=== PATIENT | female | born 1940 | race Caucasian/White ===

== ENCOUNTER 2018-02-23 20:55 | Emergency (ER) | payer MEDICARE, BC ==
[~2018-02-23] VITALS: Ht 165.1 cm; Wt 66.2 kg
[2018-02-23 21:34] LABS: BILIRUBIN,URINE NEGATIVE (NEG); CLARITY,URINE CLEAR; COLOR,URINE YELLOW; NITRITE,URINE NEGATIVE (NEG); PH,URINE 7.5; PROTEIN,URINE NEGATIVE (NEG-TRACE); UROBILINOGEN,URINE 0.2 mg/dL (0.2 mg/dL)
[2018-02-23 21:41] LABS: BACTERIA,URINE 0 /HPF (0-FEW); RBC,URINE 0 /HPF (0-2); SQUAMOUS EPITHELIAL CELL,UR FEW /LPF; WBC,URINE RARE /HPF (0-4)
[2018-02-23 21:54] LABS: BASO % 0 % (0-3); EOS # 0.1 x10^3/uL (0.0-0.7); EOS % 1 % (0-3); HEMATOCRIT 40.1 % (36.0-47.0); HEMOGLOBIN 13.9 g/dL (12.0-15.5); LYMPH # 1.4 x10^3/uL (1.0-4.8); LYMPH % 18 % (24-48); MEAN CORPUSCULAR HEMOGLOBIN 30 pg (25-35); MEAN CORPUSCULAR HGB CONC 35 g/dL (31-37); MEAN CORPUSCULAR VOLUME 86 fL (79-100); MONO # 0.7 x10^3/uL (0.0-1.1); MONO % 9 % (0-9); NEUT # 5.9 x10^3uL (1.8-7.7); NEUT % 72 % (31-73); PLATELET COUNT 366 x10^3/uL (140-400); RED BLOOD COUNT 4.65 x10^6/uL (3.50-5.40); RED CELL DISTRIBUTION WIDTH 14.3 % (11.5-14.5); WHITE BLOOD COUNT 8.1 x10^3/uL (4.0-11.0)
[2018-02-23 22:00] VITALS: BP 165/67
[2018-02-23] MEDS ORDERED: oxyCODONE/APAP 10/325 1 TAB TABLET PO ONE (22:00)
[2018-02-23 22:04] LABS: CALCIUM 9.9 mg/dL (8.5-10.1); CREATININE 0.8 mg/dL (0.6-1.0); GFR 69.4; POTASSIUM 3.9 mmol/L (3.5-5.1)
[2018-02-23 22:10] LABS: ALBUMIN 3.9 g/dL (3.4-5.0); ALBUMIN/GLOBULIN RATIO 1.1 (1.0-1.7); TOTAL BILIRUBIN 0.2 mg/dL (0.2-1.0); TOTAL PROTEIN 7.4 g/dL (6.4-8.2)
[2018-02-23] MEDS ORDERED: CYCL5TAB PO (22:32)
--- NOTE | 2018-02-23 22:32 | PHYS DOC ---
Past Medical History Past Medical History: Fibromyalgia, Other Additional Past Medical Histor: OA, PVC'S Past Surgical History: Hysterectomy, Other Additional Past Surgical Histo: BACK Alcohol Use: None Drug Use: None Adult General Chief Complaint Chief Complaint: FLANK PAIN HPI HPI Patient is a 77 year old female with history of chronic back pain, and fibromyalgia who presents with increased lower thoracic/lumbar paravertebral back pain for the past 2 weeks. Patient's been evaluated by her primary care physician is had an outpatient x-rays performed the past several days. She was started on tramadol as needed for constipation. Constipation and has since resolved, but pain is poorly controlled. Pain is described as sharp, aching as moderate to severe as worse with palpation and movement. It is partially relieved with tramadol and is not associated with nausea vomiting, fever chills , urinary frequency, urgency dysuria, hematuria or abdominal pain. No other acute symptoms or complaints. [] Review of Systems Review of Systems Review symptoms as per history of present illness. All other review symptoms are negative. All other systems were reviewed and found to be within normal limits, except as documented in this note. Current Medications Current Medications Current Medications Medications (Trade) Dose Ordered Sig/Tayler Start Time Stop Time Status Last Admin Dose Admin Oxycodone/ Acetaminophen (Percocet 10/325) 1 tab 1X ONCE 02/23/18 22:00 02/23/18 22:01 DC Allergies Allergies Allergies Coded Allergies Type Severity Reaction Last Updated Verified NSAIDS (Non-Steroidal Anti-Inflamma Adverse Reaction Intermediate Nausea and Vomiting 02/23/18 Yes hydrocodone Adverse Reaction Intermediate 02/23/18 Yes aspirin Adverse Reaction Mild Nausea 02/23/18 Yes Physical Exam Physical Exam Constitutional: Well developed, well nourished, no acute distress, non-toxic appearance. [] HENT: Normocephalic, atraumatic, bilateral external ears normal, oropharynx moist. [] Eyes: PERRLA, EOMI, conjunctiva normal. [] Neck: Normal range of motion, no tenderness. [] Cardiovascular:Heart rate regular rhythm, no murmur [] Lungs & Thorax: Bilateral breath sounds clear to auscultation [] Abdomen: Bowel sounds normal, soft, no tenderness.Nonpulsatile [] Skin: Warm, dry. [] Back: No midline back pain, tenderness to palpation, no CVA tenderness. Left lower thoracic and lumbar tttp. [] Extremities: No tenderness. [] Neurologic: Alert and oriented X 3, normal motor function, normal sensory function, no focal deficits noted. [] Psychologic: Affect normal, judgement normal, mood normal. [] Current Patient Data Vital Signs Vital Signs Date Time Temp Pulse Resp B/P (MAP) Pulse Ox O2 Delivery O2 Flow Rate FiO2 02/23/18 21:42 98.3 74 16 173/80 (111) 97 Room Air 98.3 Lab Values Laboratory Tests Test 02/23/18 20:42 02/23/18 21:45 Urine Collection Type Unknown Urine Color Yellow Urine Clarity Clear Urine pH 7.5 Urine Specific [place] 1.010 Urine Protein Negative mg/dL (NEG-TRACE) Urine Glucose (UA) Negative mg/dL (NEG) Urine Ketones (Stick) Negative mg/dL (NEG) Urine Blood Negative (NEG) Urine Nitrite Negative (NEG) Urine Bilirubin Negative (NEG) Urine Urobilinogen Dipstick 0.2 mg/dL (0.2 mg/dL) Urine Leukocyte Esterase Small (NEG) Urine RBC 0 /HPF (0-2) Urine WBC Rare /HPF (0-4) Urine Squamous Epithelial Cells Few /LPF Urine Bacteria 0 /HPF (0-FEW) White Blood Count 8.1 x10^3/uL (4.0-11.0) Red Blood Count 4.65 x10^6/uL (3.50-5.40) Hemoglobin 13.9 g/dL (12.0-15.5) Hematocrit 40.1 % (36.0-47.0) Mean Corpuscular Volume 86 fL (79-100) Mean Corpuscular Hemoglobin 30 pg (25-35) Mean Corpuscular Hemoglobin Concent 35 g/dL (31-37) Red Cell Distribution Width 14.3 % (11.5-14.5) Platelet Count 366 x10^3/uL (140-400) Neutrophils (%) (Auto) 72 % (31-73) Lymphocytes (%) (Auto) 18 % (24-48) L Monocytes (%) (Auto) 9 % (0-9) Eosinophils (%) (Auto) 1 % (0-3) Basophils (%) (Auto) 0 % (0-3) Neutrophils # (Auto) 5.9 x10^3uL (1.8-7.7) Lymphocytes # (Auto) 1.4 x10^3/uL (1.0-4.8) Monocytes # (Auto) 0.7 x10^3/uL (0.0-1.1) Eosinophils # (Auto) 0.1 x10^3/uL (0.0-0.7) Basophils # (Auto) 0.0 x10^3/uL (0.0-0.2) D-Dimer (Flor) 0.71 ug/mlFEU (0.00-0.50) H Sodium Level 133 mmol/L (136-145) L Potassium Level 3.9 mmol/L (3.5-5.1) Chloride Level 93 mmol/L (98-107) L Carbon Dioxide Level 30 mmol/L (21-32) Anion Gap 10 (6-14) Blood Urea Nitrogen 13 mg/dL (7-20) Creatinine 0.8 mg/dL (0.6-1.0) Estimated GFR (Cockcroft-Gault) 69.4 BUN/Creatinine Ratio 16 (6-20) Glucose Level 104 mg/dL (70-99) H Calcium Level 9.9 mg/dL (8.5-10.1) Total Bilirubin 0.2 mg/dL (0.2-1.0) Aspartate Amino Transferase (AST) 25 U/L (15-37) Alanine Aminotransferase (ALT) 29 U/L (14-59) Alkaline Phosphatase 116 U/L (46-116) Total Protein 7.4 g/dL (6.4-8.2) Albumin 3.9 g/dL (3.4-5.0) Albumin/Globulin Ratio 1.1 (1.0-1.7) Lipase 132 U/L (73-393) Laboratory Tests 02/23/18 21:45 Laboratory Tests 02/23/18 21:45 EKG EKG [] Radiology/Procedures Radiology/Procedures [] Course & Med Decision Making Course & Med Decision Making Pertinent Labs and Imaging studies reviewed. (See chart for details) [Reproducible mechanical back pain. Lab work otherwise nondiagnostic. Patient states she had recent outpatient imaging studies. She has been holding off her tramadol due to concerns of worsening constipation which she states has been adequately treated with MiraLAX and mag citrate Recommend continued tramadol, will add Flexeril with instructions to follow-up with PCP. Return precautions reviewed. ] Dragon Disclaimer Dragon Disclaimer This electronic medical record was generated, in whole or in part, using a voice recognition dictation system. Departure Departure Impression: Primary Impression: Lumbar back pain Disposition: HOME, SELF-CARE Condition: GOOD Referrals: EDY PENALOZA (PCP) Patient Instructions: Back Pain, Child Additional Instructions: Please continue her on take newly prescribed muscle relaxant as directed. Follow -up with your PCP early next week for reevaluation and further pain management. Return to the ED if you develop new or worsening symptoms. Scripts Cyclobenzaprine Hcl (CYCLOBENZAPRINE HCL) 5 Mg Tablet 5 MG PO TID, #30 TAB Prov: MEAGHAN VARGAS DO 02/23/18 MEAGHAN VARGAS DO Feb 23, 2018 22:32
[2018-02-23] MEDS ORDERED: ONDANSETRON PF 4 MG/2 ML VIAL. ONE (22:38)
[2018-02-23] MEDS ORDERED: fentaNYL PF VIAL 100 MCG/2 ML VIAL IV ONE (22:45)
[2018-02-23] MEDS ORDERED: ONDANSETRON PF 4 MG/2 ML VIAL. IV ONE (22:45)
== END 2018-02-23 22:40 | disposition home or self-care (01) ==
LOC: ER 20:55
DX: G89.29 Other chronic pain (principal); M54.5 Low back pain; M54.6 Pain in thoracic spine; M79.7 Fibromyalgia; Z90.710 Acquired absence of both cervix and uterus; M19.90 Unspecified osteoarthritis, unspecified site; Z88.5 Allergy status to narcotic agent; Z88.6 Allergy status to analgesic agent
CPT/HCPCS: 36415; 80053; 81001; 83690; 85025; 85379; 87086; 96374; 96375; 99284; J2405; J3010

== ENCOUNTER 2018-03-14 09:36 | Outpatient (CLI) | payer MEDICARE, BC ==
[2018-03-14] VITALS (17 sets, daily range): BP systolic 131–219; BP diastolic 62–117
[~2018-03-14] VITALS: Ht 165.1 cm; Wt 70.8 kg
[~2018-03-14 09:36] MED LIST: CYCL5TAB PO
[2018-03-14 10:11] LABS: BASO # 0.1 x10^3/uL (0.0-0.2); BASO % 1 % (0-3); EOS % 1 % (0-3); HEMATOCRIT 39.5 % (36.0-47.0); HEMOGLOBIN 13.6 g/dL (12.0-15.5); LYMPH # 1.2 x10^3/uL (1.0-4.8); LYMPH % 14 % (24-48); MEAN CORPUSCULAR HEMOGLOBIN 30 pg (25-35); MEAN CORPUSCULAR HGB CONC 35 g/dL (31-37); MEAN CORPUSCULAR VOLUME 87 fL (79-100); MONO # 0.9 x10^3/uL (0.0-1.1); MONO % 11 % (0-9); NEUT # 6.6 x10^3uL (1.8-7.7); NEUT % 75 % (31-73); PLATELET COUNT 357 x10^3/uL (140-400); RED BLOOD COUNT 4.55 x10^6/uL (3.50-5.40); RED CELL DISTRIBUTION WIDTH 14.9 % (11.5-14.5); WHITE BLOOD COUNT 8.8 x10^3/uL (4.0-11.0)
[2018-03-14 10:21] LABS: PROTHROMBIN TIME PATIENT 12.8 SEC (11.7-14.0)
[2018-03-14] MEDS ORDERED: fentaNYL PF VIAL 100 MCG/2 ML VIAL IV ONE ×2 (11:15→14:15)
[2018-03-14] MEDS ORDERED: fentaNYL PF VIAL 100 MCG/2 ML VIAL ONE ×3 (11:21→14:21)
[2018-03-14] MEDS ORDERED: SENN-82 PO (13:10)
[2018-03-14] MEDS ORDERED: ONDA8TAB9 PO (13:10)
[2018-03-14] MEDS ORDERED: METO-239 PO (13:10)
[2018-03-14] MEDS ORDERED: HYDR-2758 PO (13:10)
[2018-03-14] MEDS ORDERED: METH500T7 PO (13:10)
[2018-03-14] MEDS ORDERED: CALC200T3 PO (13:10)
[2018-03-14] MEDS ORDERED: FAMO20TA5 PO (13:10)
--- NOTE | 2018-03-14 13:17 | RAD ---
FDG tumor localization scan, PET/CT, 03/14/2018: History: Lymphadenopathy Following IV injection of 15.6 mCi of 18 F-FDG, imaging was performed from the skull base to the proximal thighs. The noncontrast CT component was performed for attenuation correction and anatomic localization purposes rather than for primary diagnosis. The patient's blood glucose level at the time of injection was 136 MG/DL. There is extensive adenopathy in the upper abdomen, also evident on the 03/01/2018 CT study. There are confluent enlarged mesenteric and retroperitoneal lymph nodes demonstrating maximum SUVs in the 18-25 range. The Deauville criteria score is 5. There are small hypermetabolic retrocrural lymph nodes bilaterally. There are several small hypermetabolic foci along the medial aspect of the right psoas muscle. There is a lesser degree of hypermetabolic adenopathy in the iliac regions bilaterally. The hepatic activity is heterogeneous. No definite liver lesion is seen. The CT component demonstrates a small amount of free fluid in the pelvis. Physiologic activity is present in the neck. There is a small hypermetabolic focus in the mid neck on the right demonstrating a maximum SUV of 3.5. No discrete underlying lymph node is visible. This finding is of uncertain significance. An elongated area of increased FDG uptake on the left is probably muscular. The neck activity is otherwise unremarkable. There are small foci of borderline increased activity at both nichelle demonstrate a maximum SUV of 2.7 on the right and 3.0 on the left. Activity at these levels is slightly greater than the mediastinal background. No definite enlarged nodes are seen at these levels. The findings may be reactive. No definite mediastinal adenopathy is seen. The CT component density demonstrates moderate calcific pleural plaquing on the right. A small focus of mildly increased activity in the musculature along the posterior aspect of the left hip is probably physiologic. No hypermetabolic bone lesion is identified. Moderate multilevel degenerative change is present in the spine. IMPRESSION: 1. Extensive hypermetabolic abdominal and pelvic adenopathy as described above compatible with given history of lymphoma. 2. Mild hypermetabolic retrocrural adenopathy.
[2018-03-14] MEDS ORDERED: LIDOCAINE WITH 8.4% SOD BICARB 3 ML DISP.SYRIN. ONE (13:29)
[2018-03-14] MEDS ORDERED: NALOXONE 0.4 MG/ML VIAL. ONE (13:52)
[2018-03-14] MEDS ORDERED: FLUMAZENIL 0.5 MG/5 ML VIAL. IV ONE (13:52)
[2018-03-14] MEDS ORDERED: MIDAZOLAM HCL/PF 2 MG/2 ML VIAL. ONE (13:52)
[2018-03-14] MEDS ORDERED: LIDOCAINE WITH 8.4% SOD BICARB 3 ML DISP.SYRIN. IJ ONE (14:15)
[2018-03-14] MEDS ORDERED: MIDAZOLAM HCL/PF 2 MG/2 ML VIAL. IV ONE (14:15)
--- NOTE | 2018-03-14 14:30 | PDOC ---
BRIEF OPERATIVE NOTE Pre-Op Diagnosis mesenteric/retroperitoneal mass Post-Op Diagnosis same Procedure Performed CT Biopsy Surgeon Savita Anesthesia Type: Conscious Sedation Specimens Obtained 5 x 18 g cores Findings retroperitoneal mass biopsy Complications No immediate CHANTEL MCLEAN MD Mar 14, 2018 14:30
--- NOTE | 2018-03-14 14:32 | PDOC ---
MODERATE SEDATION ASSESSMENT RISKS/ALTERNATIVES Risks/Alternatives Risks and alternatives of this type of sedation and procedure discussed with: RISK/ALTERNATIVES: Patient H & P ON CHART H & P H & P on chart and reviewed for co-morbid conditions and appropriate labs. H&P ON CHART: Yes STATUS PREG STATUS ASSESSED: Yes MEDS/ALLERGIES REVIEWED Meds/Allergies Reviewed Medications and Allergies including time and route of recently administered narcotics and sedatives. MEDS/ALLERGIES REVIEWED: Yes ASA RATING ASA RATING: II AIRWAY ASSESSMENT Airway Assessment Airway patency, oral function limitations, presence of caps, crowns, dentures, partials, and ability to extend neck assessed. AIRWAY ASSESSMENT: Yes MALLAMPATI SCORE MALLAMPATI SCORE: II PRE-SEDATION ASSESSMENT PRE-SEDATION ASSESSMENT: Yes CHANTEL MCLEAN MD Mar 14, 2018 14:32
--- NOTE | 2018-03-14 14:32 | PDOC1 ---
History and Physical Date of Procedure Date of Admission History of Present Illness Reason for Visit mesenteric/retroperitoneal mass Past Medical History Past Medical History see nursing pre-op assessment Current Medications Current Medications Current Medications Fentanyl Citrate (Fentanyl 2ml Vial) 50 mcg 1X ONCE IV Last administered on at 11:31; Start 03/14/18 at 11:15; Stop 03/14/18 at 11:16; Status DC Fentanyl Citrate (Fentanyl 2ml Vial) 100 mcg STK-MED ONCE .ROUTE ; Start at 11:21; Stop 03/14/18 at 11:22; Status DC Lidocaine/Sodium Bicarbonate (Buffered Lidocaine 1%) 3 ml STK-MED ONCE .ROUTE ; Start 03/14/18 at 13:29; Stop 03/14/18 at 13:30; Status DC Midazolam HCl (Versed) 2 mg STK-MED ONCE .ROUTE ; Start 03/14/18 at 13:52; Stop 03/14/18 at 13:53; Status DC Fentanyl Citrate (Fentanyl 2ml Vial) 100 mcg STK-MED ONCE .ROUTE ; Start at 13:52; Stop 03/14/18 at 13:53; Status DC Flumazenil (Romazicon) 0.5 mg STK-MED ONCE IV ; Start 03/14/18 at 13:52; Stop 03/14/18 at 13:53; Status DC Naloxone HCl (Narcan) 0.4 mg STK-MED ONCE .ROUTE ; Start 03/14/18 at 13:52; Stop 03/14/18 at 13:53; Status DC Lidocaine/Sodium Bicarbonate (Buffered Lidocaine 1%) 3 ml 1X ONCE IJ ; Start 03/14/18 at 14:15; Stop 03/14/18 at 14:16; Status DC Midazolam HCl (Versed) 2 mg 1X ONCE IV ; Start 03/14/18 at 14:15; Stop at 14:16; Status DC Fentanyl Citrate (Fentanyl 2ml Vial) 100 mcg 1X ONCE IV ; Start 03/14/18 at 14 :15; Stop 03/14/18 at 14:16; Status DC Fentanyl Citrate (Fentanyl 2ml Vial) 100 mcg STK-MED ONCE .ROUTE ; Start at 14:21; Stop 03/14/18 at 14:22; Status DC Active Scripts Active Reported Tums (Calcium Carbonate) 200 Mg Tab.chew 200 Mg PO Senna S Tablet (Sennosides/Docusate Sodium) 1 Each Tablet 2 Each PO BID Famotidine 20 Mg Tablet 20 Mg PO BID Methocarbamol 500 Mg Tablet 500 Mg PO QID Metoprolol Succinate ( Xl ) (Metoprolol Succinate) 25 Mg Tab.er.24h 1 Tab PO DAILY Zofran (Ondansetron Hcl) 8 Mg Tablet 1 Tab PO Q8HRS Hydrocodone-Apap 5-325 (Hydrocodone Bit/Acetaminophen) 1 Each Tablet 1 Tab PO PRN Q4HRS PRN Allergies Allergies: Coded Allergies: oxycodone (Verified Allergy, Intermediate, 03/14/18) NSAIDS (Non-Steroidal Anti-Inflamma (Verified Adverse Reaction, Intermediate, Nausea and Vomiting, 02/23/18) aspirin (Verified Adverse Reaction, Mild, Nausea, 02/23/18) Physical Exam Vital Signs Vital Signs Date Time Temp Pulse Resp B/P (MAP) Pulse Ox O2 Delivery O2 Flow Rate FiO2 03/14/18 14:25 18 99 Nasal Cannula 3.0 03/14/18 11:32 72 180/73 (108) 03/14/18 11:20 98.2 98.2 Other see nursing pre-op assessment Assessment Assessment Mesenteric/retroperitoneal mass Plan Plan CT Biopsy CHANTEL MCLEAN MD Mar 14, 2018 14:32
--- NOTE | 2018-03-15 10:35 | RAD ---
Procedure: CT-guided retroperitoneal biopsy Clinical Indication: 77-year-old with abdominal and retroperitoneal masses Sedation: Conscious sedation was administered with a total intraprocedural [id number]-gi-upeb time of 23 minutes. The patient was monitored by a qualified independent observer throughout the time of sedation. Please refer to the medical record for exact doses of medications utilized to achieve moderate sedation. Antibiotics: None Sterility: The procedure was performed in its entirety using appropriate elements of sterile technique. Consent: The procedure was explained in its entirety to the patient or the patients designated logistics service representative by a member of the treatment team, including a discussion of the risks, benefits and commonly accepted alternatives to the procedure, as well as the expected consequences of no therapy whatsoever. Discussion of the risks included, but was not limited to, those that are most frequent and those that are rare but possibly severe or life-threatening, as well as the possibility of unforeseen complications. Technique and Findings: Following informed consent, the patient was prepped and draped in usual sterile fashion. 1% lidocaine was used to achieve local anesthesia over the personal soft tissues after a preliminary CT scan of the area of interest was performed. A small dermatotomy was made. Under periodic CT surveillance, a 17-gauge needle guide was advanced towards a prominent retroperitoneal component of the mass and 5 x 18-gauge core biopsy specimens were obtained and divided between formalin and RPMI. The needle guide was removed and hemostasis was achieved with manual compression. Complications: No immediate Impression: 1. CT-guided retroperitoneal mass biopsy as described PQRS Compliance Statement: One or more of the following individualized dose reduction techniques were utilized for this examination: 1. Automated exposure control 2. Adjustment of the mA and/or kV according to patient size 3. Use of iterative reconstruction technique
--- NOTE | 2018-03-19 16:08 | PATHOLOGY ---
[facility] Accession Number: [id number] . 01 Material submitted: . ABDOMINAL MASS BIOPSY . 01 Clinical history: . Abdominal mass . 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 SEE COMMENT. (JPM:maribel; 03/19/2018) QMS/03/19/2018 . 02 Comment: Sections of the abdominal mass CT-guided needle biopsies reveal focal sheet-like areas of proliferation of atypical large lymphoid cells. The atypical cells have modest amounts of pale eosinophilic cytoplasm and possess enlarged, rounded to irregular nuclei containing one or more nucleoli. There are focally admixed small lymphocytes. There are foci of tumor necrosis. A portion of the specimen submitted for marker studies by flow cytometry reveals a population of monoclonal B-cells comprising 13.5% of total cells which are CD19 positive, CD10 positive (dim), CD5 negative, and show surface kappa light chain restriction. To confirm flow cytometric findings and characterize the target cells in a tissue architectural context, a panel of immunohistochemical stains is performed on block A2 and yields the following results: . CD20: Atypical lymphoid cells positive CD3: Atypical lymphoid cells negative; population of admixed small lymphocytes positive CD5: Atypical lymphoid cells negative; population of admixed small lymphocytes positive CD10: Atypical lymphoid cells positive BCL2: Atypical lymphoid cells positive BCL6: Atypical lymphoid cells positive MUM1: Atypical lymphoid cells negative Ki-67: Atypical lymphoid cells show a proliferation index of approximately 40-50% Cyclin D1: Atypical lymphoid cells negative . 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 . The case is also examined by Dr. Aaron, who concurs with the diagnosis. The results are reported to Dr. Godoy at 8:30 a.m. on 03/19/2018. (JPM:maribel; 03/19/2018) . . Special stains performed on block A2: Immunoperoxidase stains for CD20, CD3, CD5, CD10, BCL2, BCL6, MUM1, Ki-67, cyclin D1 . 02 Electronically signed: . Evaristo Vigil MD, Pathologist NPI- [id number] . 01 Gross description: . The specimen is received in formalin, labeled "Aury Hong, abdominal mass". Received are three needle cores of pale tanner soft tissue ranging in length from 1.4 to 1.8 cm, with each measuring 0.1 cm in diameter. The specimen is submitted entirely in cassettes A1 through A3. (CAA; 03/15/2018) QAC/QAC . 02 Pathologist provided ICD-10: C85.10 . 02 CPT . 866751, [id number], [id number], [id number] Specimen Comment: A courtesy copy of this report has been sent to Specimen Comment: [phone], , . Specimen Comment: Report sent to ,DR GODOY / DR PENALOZA Performed at: 01 [facility] [address], [place] [id number] MD Mina Baldwin MD Phone: [phone] Performed at: 02 [facility] [address] [place], [place] [id number] MD Evaristo Vigil MD Phone: [phone]
[2018-03-24] MEDS ORDERED: FENT1PAT15 TD (18:47)
[2018-03-24] MEDS ORDERED: POLY17PO3 PO (18:47)
[2018-03-24] MEDS ORDERED: LORA-434 PO (18:47)
[2018-03-24] MEDS ORDERED: LIDO700A39 TD (18:47)
== END 2018-03-14 16:44 | disposition home or self-care (01) ==
LOC: INTRAD 09:36
PROVIDERS: ATTEND Internal Medicine Hematology & Oncology
DX: C83.33 Diffuse large B-cell lymphoma, intra-abdominal lymph nodes (principal); Z79.899 Other long term (current) drug therapy; Z79.82 Long term (current) use of aspirin; Z88.6 Allergy status to analgesic agent; Z88.8 Allergy status to other drugs, medicaments and biological substances; Z79.01 Long term (current) use of anticoagulants
CPT/HCPCS: 36415; 49180; 77012; 78815; 85025; 85610; 85730; 88184; 88185; 99152; 99153; A9552; J2250; J3010; 88305; 88341; 88342; 88360

== ENCOUNTER → 2018-04-25 | Outpatient (CLI) | payer MEDICARE, BC ==
[2018-03-24 15:00] VITALS: BP 139/69
[~2018-04-25] MED LIST changes: +CALC200T3 PO; +FAMO20TA5 PO; +FENT1PAT15 TD; +HYDR-2761 PO; +LIDO700A39 TD; +LORA-434 PO; +METH500T7 PO; +METO-239 PO; +ONDA8TAB9 PO; +POLY17PO28 PO; +SENN-82 PO
--- NOTE | 2018-04-25 14:33 | RAD ---
FDG tumor localization scan, PET/CT, 04/25/2018: History: Restaging lymphoma Following IV injection of 15.5 mCi of 18 F-FDG imaging was performed from the skull base to the proximal thighs. The noncontrast CT component was performed for attenuation correction and anatomic localization purposes rather than for primary diagnosis. The patient's blood glucose level at the time of injection was is 110 MG/DL. Comparison is made to a study from 03/14/2018. Physiologic activity is present in the neck. No abnormal pulmonary or mediastinal FDG uptake is seen. Extensive hypermetabolic abdominal adenopathy present on the previous study has regressed. The CT component demonstrates marked interval decrease in size of the abnormal lymph nodes. The best defined residual lymph node lies in the left para-aortic region at the level of the renal vessels and measures approximately 23 x 13 mm. It measured 40 x 27 mm on the previous study. This node is no longer significantly hypermetabolic. No residual hypermetabolic abdominal or pelvic lymph nodes are seen. Normal GI tract and urinary tract activity is evident. Marrow activity in the spine has generally increased, probably representing rebound marrow hyperplasia due to interval chemotherapy. There is a mild thoracolumbar scoliosis with degenerative change, particularly at L1-[address] on the left. Incidental CT findings include the presence of a right Port-A-Cath extending to the level of the atriocaval junction. Fibrocalcific pleural plaquing is again noted in the right chest. IMPRESSION: 1. Previously seen abdominal and pelvic adenopathy has markedly regressed with only minimal residual left para-aortic adenopathy. No residual hypermetabolic adenopathy is evident. 2. The Deauville criteria score is 1.
== END | disposition home or self-care (01) ==
LOC: PETSC 09:30
PROVIDERS: ATTEND Internal Medicine Hematology & Oncology
DX: C83.33 Diffuse large B-cell lymphoma, intra-abdominal lymph nodes (principal); R59.0 Localized enlarged lymph nodes
CPT/HCPCS: 78815; A9552

== ENCOUNTER → 2018-07-18 | Outpatient (CLI) | payer MEDICARE, BC ==
[2018-03-24 15:00] VITALS: BP 139/69
[~2018-07-18] MED LIST changes: +ACET500T68 PO; +CRAN500C PO; +LORA0.5T PO
--- NOTE | 2018-07-18 12:46 | RAD ---
PET/CT imaging from the skull through the midthigh History: Lymphoma. Restaging. Comparison: April 25, 2018 PET/CT Technique: PET examination was performed from the skull base to the proximal thighs after intravenous administration of 13.0 mCi Fluorine [address] scan was performed for the purposes of localization and attenuation, not for primary diagnosis. Blood glucose level at time of injection was 109 mg/dl. PQRS Compliance Statement: One or more of the following individualized dose reduction techniques were utilized for this examination: 1. Automated exposure control 2. Adjustment of the mA and/or kV according to patient size 3. Use of iterative reconstruction technique Findings: Head and neck: No abnormal hypermetabolic uptake is seen. Chest: There is new uptake involving upper anterior mediastinum which represents the left brachiocephalic vein and therefore is a normal finding. More inferiorly within the anterior mediastinum at the level of the right ventricle, there is a new area of increased metabolic uptake. No soft tissue mass or enlarged lymphadenopathy or pericardial effusion is seen here. Therefore, this may represent focal hypermetabolic activity related to the right ventricular muscle. No new hypermetabolic thoracic lymphadenopathy is evident. No new lung nodule or lung infiltrate is seen. Chronic calcified pleural plaque and scarring of the right lung field is seen. Abdomen and pelvis: Other than physiologic GI tract and urinary tract activity, no other hypermetabolic area is seen. No hypermetabolic abdominal or pelvic lymphadenopathy is evident. The left periaortic lymph node described previously has not changed in size or appearance and is not hypermetabolic. The spleen is not enlarged without hypermetabolic activity. Musculoskeletal: Again seen is diffuse marrow activity consistent with rebound bone marrow hyperplasia after chemotherapy. No focally prominent hypermetabolic lesion is evident. No lytic process is seen. Impression: No significant lymphadenopathy is seen. No significant hypermetabolic activity is seen on this study. The Deauville criteria score is 1.
== END | disposition home or self-care (01) ==
LOC: PETSC 08:14
PROVIDERS: ATTEND Internal Medicine Hematology & Oncology
DX: C83.33 Diffuse large B-cell lymphoma, intra-abdominal lymph nodes (principal); J92.9 Pleural plaque without asbestos; R91.8 Other nonspecific abnormal finding of lung field
CPT/HCPCS: 78815; A9552

== ENCOUNTER 2018-07-31 08:26 | Outpatient (CLI) | payer MEDICARE, BC ==
[2018-07-31] VITALS (8 sets, daily range): BP systolic 119–140; BP diastolic 65–89
[~2018-07-31] VITALS: Ht 165.1 cm; Wt 57.6 kg
[~2018-07-31 08:26] MED LIST changes: -ACET500T68 PO; -CRAN500C PO; -LORA0.5T PO
[2018-07-31] MEDS ORDERED: ACET500T68 PO (08:47)
[2018-07-31] MEDS ORDERED: CRAN500C PO (08:47)
[2018-07-31 09:26] LABS: BASO % 1 % (0-3); EOS % 1 % (0-3); HEMATOCRIT 34.3 % (36.0-47.0); HEMOGLOBIN 11.4 g/dL (12.0-15.5); LYMPH # 0.8 x10^3/uL (1.0-4.8); LYMPH % 19 % (24-48); MEAN CORPUSCULAR HEMOGLOBIN 34 pg (25-35); MEAN CORPUSCULAR HGB CONC 33 g/dL (31-37); MEAN CORPUSCULAR VOLUME 103 fL (79-100); MONO # 0.6 x10^3/uL (0.0-1.1); MONO % 15 % (0-9); NEUT # 2.8 x10^3uL (1.8-7.7); NEUT % 65 % (31-73); PLATELET COUNT 211 x10^3/uL (140-400); RED BLOOD COUNT 3.33 x10^6/uL (3.50-5.40); RED CELL DISTRIBUTION WIDTH 15.7 % (11.5-14.5); WHITE BLOOD COUNT 4.3 x10^3/uL (4.0-11.0)
[2018-07-31] MEDS ORDERED: LIDOCAINE 1%/EPI 1:100,000 20 ML VIAL. ONE (09:31)
[2018-07-31] MEDS ORDERED: fentaNYL PF VIAL 100 MCG/2 ML VIAL ONE (10:01)
[2018-07-31] MEDS ORDERED: fentaNYL PF VIAL 100 MCG/2 ML VIAL IV ONE (10:15)
[2018-07-31] MEDS ORDERED: HYDR-2761 PO (10:15)
[2018-07-31] MEDS ORDERED: LORA0.5T PO (10:15)
[2018-07-31] MEDS ORDERED: LIDOCAINE 1%/EPI 1:100,000 20 ML VIAL. IJ ONE (10:15)
[2018-07-31] MEDS ORDERED: IV NORMAL SALINE 250ML 250 ML IV ONE (10:15)
[2018-07-31] MEDS ORDERED: ONDA8TAB9 PO (10:16)
--- NOTE | 2018-07-31 10:20 | PDOC ---
MODERATE SEDATION ASSESSMENT RISKS/ALTERNATIVES Risks/Alternatives Risks and alternatives of this type of sedation and procedure discussed with: RISK/ALTERNATIVES: Patient H & P ON CHART H & P H & P on chart and reviewed for co-morbid conditions and appropriate labs. H&P ON CHART: Yes STATUS PREG STATUS ASSESSED: Yes MEDS/ALLERGIES REVIEWED Meds/Allergies Reviewed Medications and Allergies including time and route of recently administered narcotics and sedatives. MEDS/ALLERGIES REVIEWED: Yes ASA RATING ASA RATING: II AIRWAY ASSESSMENT Airway Assessment Airway patency, oral function limitations, presence of caps, crowns, dentures, partials, and ability to extend neck assessed. AIRWAY ASSESSMENT: Yes MALLAMPATI SCORE MALLAMPATI SCORE: II PRE-SEDATION ASSESSMENT PRE-SEDATION ASSESSMENT: Yes CHANTEL MCLEAN MD Jul 31, 2018 10:20
--- NOTE | 2018-07-31 10:21 | PDOC ---
BRIEF OPERATIVE NOTE Pre-Op Diagnosis cancer Post-Op Diagnosis cancer in remission Procedure Performed Port removal Surgeon Savita Anesthesia Type: Conscious Sedation Findings Port removal Complications none CHANTEL MCLEAN MD Jul 31, 2018 10:21
--- NOTE | 2018-07-31 12:40 | NUR ---
Discharge Note: ROSARIO REED Discharge instructions and discharge home medications reviewed with including s/s requiring further attention, follow up, and wound care and a copy given. All questions have been answered and understanding verbalized. The following instructions and handouts were given: post moderate sedation and post port removal Discontinued lines and drains: 22g left hand Patient discharged to home via private vehicle with daughter
--- NOTE | 2018-07-31 14:56 | RAD ---
Procedure: Port-A-Cath removal Clinical Indication: 77-year-old no longer requiring chemotherapy Sedation: Conscious sedation was administered with a total intraprocedural [id number] time of 25 minutes. The patient was monitored by a qualified independent observer throughout the time of sedation. Please refer to the medical record for exact doses of medications utilized to achieve moderate sedation. Antibiotics: None Exposure: Kerma-Area Product: 0.2 Gycm2 Sterility: All elements of maximal sterile barrier technique including the use of a cap, mask, sterile gown, sterile gloves, large sterile sheet, appropriate hand hygiene, and 2% chlorhexidine for cutaneous antisepsis (or acceptable alternative antiseptic per current guidelines) were followed for this procedure. If ultrasound guidance was utilized, sterile ultrasound techniques were followed including use of a sterile probe cover. Consent: The procedure was explained in its entirety to the patient or the patients designated renewals representative by a member of the treatment team, including a discussion of the risks, benefits and commonly accepted alternatives to the procedure, as well as the expected consequences of no therapy whatsoever. Discussion of the risks included, but was not limited to, those that are most frequent and those that are rare but possibly severe or life-threatening, as well as the possibility of unforeseen complications. Technique and Findings: Following informed consent, the patient was prepped and draped in usual sterile fashion. Fluoroscopy revealed an intact right IJ Port-A-Cath. 1% lidocaine was used to achieve local anesthesia over the port site. A small dermatotomy was made. Blunt dissection techniques were then used to free the port from the pocket. The entirety of the port was removed and hemostasis was achieved with manual compression. The pocket was copiously irrigated with vancomycin impregnated sterile saline then closed with deep interrupted and running subcuticular 4-0 Vicryl suture. Complications: No immediate Impression: 1. Fluoroscopic guided Port-A-Cath removal as described
== END 2018-07-31 12:45 | disposition home or self-care (01) ==
LOC: INTRAD 08:26
PROVIDERS: ATTEND Internal Medicine Hematology & Oncology
DX: Z45.2 Encounter for adjustment and management of vascular access device (principal); C83.33 Diffuse large B-cell lymphoma, intra-abdominal lymph nodes; Z79.01 Long term (current) use of anticoagulants; Z88.8 Allergy status to other drugs, medicaments and biological substances; Z88.6 Allergy status to analgesic agent; Z88.5 Allergy status to narcotic agent
CPT/HCPCS: 36415; 36590; 77001; 85025; 85610; 85730; 99152; 99153; J3010; J3490; J7050; J7030

== ENCOUNTER → 2018-10-31 | Outpatient (CLI) | payer MEDICARE, BC ==
[2018-07-31 12:30] VITALS: BP 120/74
[~2018-10-31] MED LIST changes: +ACET500T68 PO; +CRAN500C PO; +LIDO700A21 TD; -LIDO700A39 TD; +LORA0.5T PO
--- NOTE | 2018-10-31 09:52 | RAD ---
FDG tumor localization scan, PET/CT, 10/31/2018: HISTORY: Restaging lymphoma Following IV injection of 15.3 mCi of 18 F-FDG, imaging was performed from the skull base to the proximal thighs. The noncontrast CT component was performed for attenuation correction and anatomic localization purposes rather than for primary diagnosis. The patient's blood glucose level the time of injection was 95 MG/DL. Comparison is made to a study from 07/18/2018. Physiologic activity is present in the neck. No hypermetabolic neck lesion is seen. There are foci of mildly increased activity at both nichelle which are more prominent than on the previous study. The maximum SUV at the left hilum is 4.1 and at the right is 3.3. There is a lesser degree of slightly increased activity in the right subcarinal region. The noncontrast CT component demonstrates no obvious adenopathy. No hypermetabolic pulmonary lesion is seen. 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 There are a few scattered linear opacities in both lungs compatible with scarring. Normal GI tract and urinary tract activity is present in the abdomen and pelvis. No hypermetabolic abdominal or pelvic lesion is seen. The diffuse marrow activity seen on the previous study has subsided and was presumably chemotherapy related. No new bony abnormality is detected. IMPRESSION: 1. Small foci of mildly increased FDG uptake at both nichelle and in the mediastinum. This could be reactive related to inflammation or infection. Recurrent lymphoma cannot be excluded, although this seems less likely considering the fact that the patient's original involvement was abdominal/pelvic. 2. No other significant FDG-PET abnormality is detected.
== END | disposition home or self-care (01) ==
LOC: PETSC 07:26
PROVIDERS: ATTEND Internal Medicine Hematology & Oncology
DX: C83.33 Diffuse large B-cell lymphoma, intra-abdominal lymph nodes (principal)
CPT/HCPCS: 78815; A9552

== ENCOUNTER 2018-11-18 08:34 | Outpatient (CLI) | payer MEDICARE, BC ==
[~2018-11-18] VITALS: Ht 165.1 cm; Wt 56.7 kg
[2018-11-18] VITALS (9 sets, daily range): BP systolic 125–174; BP diastolic 72–97
[2018-11-18 08:53] LABS: BASO % 1 % (0-3); EOS # 0.1 x10^3/uL (0.0-0.7); EOS % 3 % (0-3); HEMATOCRIT 42.1 % (36.0-47.0); HEMOGLOBIN 14.1 g/dL (12.0-15.5); LYMPH # 1.2 x10^3/uL (1.0-4.8); LYMPH % 37 % (24-48); MEAN CORPUSCULAR HEMOGLOBIN 31 pg (25-35); MEAN CORPUSCULAR HGB CONC 33 g/dL (31-37); MEAN CORPUSCULAR VOLUME 93 fL (79-100); MONO # 0.7 x10^3/uL (0.0-1.1); MONO % 21 % (0-9); NEUT # 1.2 x10^3uL (1.8-7.7); NEUT % 39 % (31-73); PLATELET COUNT 192 x10^3/uL (140-400); RED BLOOD COUNT 4.51 x10^6/uL (3.50-5.40); RED CELL DISTRIBUTION WIDTH 14.5 % (11.5-14.5); WHITE BLOOD COUNT 3.1 x10^3/uL (4.0-11.0)
[2018-11-18] MEDS ORDERED: METH-37 PO (09:02)
[2018-11-18] MEDS ORDERED: bilberry PO (09:02)
[2018-11-18] MEDS ORDERED: ACET500T68 PO (09:02)
[2018-11-18] MEDS ORDERED: LUTE6CAP3 PO (09:02)
[2018-11-18] MEDS ORDERED: CRAN425C3 PO (09:02)
[2018-11-18 09:03] LABS: PROTHROMBIN TIME PATIENT 12.4 SEC (11.7-14.0)
[2018-11-18] MEDS ORDERED: LIDOCAINE WITH 8.4% SOD BICARB 3 ML DISP.SYRIN. ONE (09:22)
[2018-11-18] MEDS ORDERED: fentaNYL PF VIAL 100 MCG/2 ML VIAL ONE (09:36)
[2018-11-18] MEDS ORDERED: MIDAZOLAM HCL/PF 2 MG/2 ML VIAL. ONE (09:36)
[2018-11-18] MEDS ORDERED: LIDOCAINE WITH 8.4% SOD BICARB 3 ML DISP.SYRIN. IJ ONE (10:00)
[2018-11-18] MEDS ORDERED: fentaNYL PF VIAL 100 MCG/2 ML VIAL IV ONE (10:00)
[2018-11-18 10:41] LABS: % ATYL 2 % (0-0); % BANDS 7 % (0-9); % BASOS 1 % (0-3); % EOS 3 % (0-5); % LYMPHS 43 % (24-48); % MONOS 19 % (0-10); % SEGS 25 % (35-66); PLT ESTIMATE ADEQUATE (ADEQUATE)
[2018-11-18 10:43] LABS: OVALOCYTES FEW
--- NOTE | 2018-11-18 11:29 | NUR ---
Discharge Note: ROSARIO REED Discharge instructions and discharge home medications reviewed with Patient and a copy given. All questions have been answered and understanding verbalized. The following instructions and handouts were given: Bone marrow biopsy after care. Discontinued lines and drains: Lt hand s/l discontinued with tip intact. Patient discharged to home with daughter via private car. Pt leaves in NAD.
--- NOTE | 2018-11-18 11:49 | RAD ---
CT-guided bone marrow biopsy. 11/18/2018 11:46 AM Indication: CYTOPENIA, HX OF LYMPHOMA Discussion: The risks and benefits of the procedure, including but not limited to, bleeding and infection were discussed patient. Informed consent was obtained. The patient was brought to the CT scanner and placed in the prone position. A timeout procedure was performed. Production Operator CT imaging of the pelvis demonstrated left ilium amenable to bone marrow biopsy. The overlying soft tissues were prepped and draped using maximum sterile barrier technique. 1% lidocaine without epinephrine was administered for local anesthesia. Under intermittent CT guidance, an OncControl needle was advanced into the bone marrow of the left iliac crest. 2 Aspirates and 1 core biopsy samples were obtained. Samples were delivered to pathology was present at the time of procedure. The needle was removed and manual pressure held to achieve hemostasis. No immediate complications were identified. The procedure was performed under conscious sedation including continuous cardiopulmonary monitoring via dedicated sedation nurse. Sedation time: 20 minutes Impression: Successful CT-guided bone marrow biopsy of the left iliac crest . PQRS Compliance Statement: One or more of the following individualized dose reduction techniques were utilized for this examination: 1. Automated exposure control 2. Adjustment of the mA and/or kV according to patient size 3. Use of iterative reconstruction technique
--- NOTE | 2018-11-22 21:05 | PATHOLOGY ---
[facility] Accession Number: [id number] . 01 Material submitted: . PART A: bone - BONE MARROW BIOPSY PART B: bone - BONE MARROW CLOT PART C: bone - BONE MARROW ASPIRATE SLIDES PART D: bone - PERIPHERAL BLOOD SMEARS PART E: bone - BONE MARROW FLOW . 01 Clinical history: . Cytopenia, history of lymphoma . 02 Diagnosis: Peripheral smear: - Mild leukopenia and absolute neutropenia. . Bone marrow, aspirate smears, clot section, and core biopsy: - Normocellular marrow showing trilineage hematopoiesis, no significant dyspoiesis, and mild left shift of granulopoiesis - negative for lymphomatous involvement. - Decreased iron stores. . (JPM:ratna; 11/22/2018) MBR/11/22/2018 . 02 Comment: The peripheral smear shows a mild leukopenia and absolute neutropenia. The bone marrow is normocellular and shows trilineage hematopoiesis, no significant dyspoiesis, and a mild left shift of granulopoiesis. There is no morphologic or immunophenotypic evidence of involvement by lymphoma. (JPM:ratna; 11/22/2018) . Special stains performed: Reticulin stain on A1. Iron stain on C1, B1, B2. . 02 Electronically signed: . Evaristo Vigil MD, Pathologist NPI- [id number] . 01 Gross description: . A. Received in formalin labeled "Aury Pitts BM BX," is a single needle core of tanner bone measuring 1.8 cm in length and 0.3 cm in diameter. The specimen is submitted entirely in cassette A1, following decalcification. . B. Received in formalin labeled "Aury Pitts BM Asp-clot," is an aggregate of dark tanner blood clot measuring 2.9 x 2.7 x 0.3 cm. The specimen is filtered and entirely submitted in cassette B1 and B2. (TSD; 11/18/2018) TOB/TOB . 02 Microscopic: . Laboratory Data: The WBC count is 3.1 K/CMM, and the automated WBC differential reveals 39% neutrophils, 37% lymphs, 21% monos, 3% eos, and 1% baso. The RBC count is 4.51 M/CMM, hemoglobin 14.1 G/DL, hematocrit 42.1%, MCV 93 FL, MCH 31 PG, MCHC 33 G/DL, and the RDW is 14.5%. The platelet count is 192 K/CMM. . Peripheral Smear: The peripheral smear is reviewed. The WBC count is mildly decreased. There is a mild absolute neutropenia. The WBC differential reveals predominant populations of segmented neutrophils and lymphocytes, with a smaller population of monocytes and occasional eosinophils noted. Neutrophils do not show dysplastic changes. There is no significant neutrophilic left shift. There are no circulating blasts. There is no leukoerythroblastic reaction. The lymphocyte population consists predominantly of small lymphocytes. There are no obvious circulating lymphoma cells. Red blood cells appear normochromic and normocytic and show no significant anisopoikilocytosis. Platelets appear normal in number and morphology. . Aspirate Smears: Two Montiel's-stained and one iron-stained aspirate smears are examined. The smears contain multiple marrow particles. The M/E ratio is within normal range. Erythroid maturation predominantly appears normoblastic. There are no megaloblastic or overt dysplastic changes. There appears to be a mild left shift of granulopoiesis. There are no dysplastic changes or increase of blasts. Megakaryocytes are focally adequate in number and are of variable ploidy. Plasma cells are not increased. Lymphocytes are not increased. There is no atypical lymphoreticular infiltrate. There are no cells foreign to the marrow. The iron stain shows focally adequate reticuloendothelial iron stores. No ringed sideroblasts are identified. . Bone Marrow Biopsy and Clot Section: Sections of the bone marrow biopsy reveal segments of bone marrow showing focal hemorrhage. Preserved areas of the biopsy are approximately 20%-30% cellular. The clot sections contain several marrow particles, the majority of which are also on the order of 20%-30% cellular. There is trilineage hematopoiesis. Erythroid and granulocytic precursors are present in varying stages of maturation. There is no increase of blasts. Megakaryocytes appear adequate in number and are of variable ploidy. There is a small, fairly well-demarcated non-paratrabecular lymphoid nodule present in the biopsy comprised of small lymphocytes. There are no abnormal lymphoid aggregates or granulomas. There is no evidence of marrow involvement by large cell lymphoma. There are no other cells foreign to the marrow. A reticulin stain obtained on the biopsy shows a focal mild increase of reticulin fibers. Iron stains obtained on the clot section show decreased iron stores. No ringed sideroblasts are identified. . Special Studies: Bone marrow submitted for flow cytometric analysis has a viability of 98.5%. Granulocytes comprise 56.6% of total cells and show phenotypic evidence of maturation without dysmaturation. Monocytes comprise 10.1% of total cells and are relatively increased and show phenotypic evidence of maturation without dysmaturation. CD45 dim, CD34 positive cells comprise 0.2% of total cells. Plasma cells are not increased and show unremarkable surface marker expression. Lymphocytes comprise 29.5% of total cells. T-cells comprise 84% of lymphoid cells and show a CD4/CD8 ratio of 0.6. NK-cells comprise 12% of lymphoid cells. An accurate evaluation of B-cell antigen expression and the kappa:lambda ratio is not possible due to the low number of B-cells identified. There is no immunophenotypic evidence of a lymphoproliferative disorder, acute leukemia, increase in blasts or plasma cell neoplasm. . (JPM:ratna; 11/22/2018) . 02 Pathologist provided ICD-10: D72.819, D70.9, D75.9 . 02 CPT . 245976, 911094, 207057, 671017, 896495, [id number], 479802, 692917, [id number] Specimen Comment: A courtesy copy of this report has been sent to Specimen Comment: [phone], , . Specimen Comment: Report sent to ,DR GODOY / DR PENALOZA Specimen Comment: A duplicate report has been generated due to demographic updates. Performed at: 01 [facility] [address], [place], [place] [id number] MD Mina Baldwin MD Phone: [phone] Performed at: [address] [facility] [address], [place] [id number] MD Evaristo Vigil MD Phone: [phone]
== END 2018-11-18 11:25 | disposition home or self-care (01) ==
LOC: INTRAD 08:34
PROVIDERS: ATTEND Internal Medicine Hematology & Oncology
DX: D72.818 Other decreased white blood cell count (principal); Z79.899 Other long term (current) drug therapy; Z79.01 Long term (current) use of anticoagulants
CPT/HCPCS: 36415; 38222; 77012; 85025; 85610; 88184; 88185; 88237; 88305; 88311; 88313; 99152; J3010; 85007

== ENCOUNTER → 2019-01-30 | Outpatient (CLI) | payer MEDICARE, BC ==
[2018-11-18 10:49] VITALS: BP 146/79
[~2019-01-30] MED LIST changes: +CRAN425C3 PO; +LUTE6CAP3 PO; +METH-37 PO; +bilberry PO
--- NOTE | 2019-01-31 10:46 | RAD ---
Examination: PET W CT SKULL TO MIDTHIGH History: Lymphoma restaging Comparison/Correlation: 10/31/2018 PET/CT exam FINDINGS: Net dose 15.5 mCi F-18 FDG was administered intravenously for purposes of PET/CT exam. Blood glucose level at the time of radiotracer administration was 99 mg/dL. Imaging was performed from the skull base to the proximal thighs. Hepatic reference uptake is SUV max of 2.1 . Uptake involving the visualized head and neck is unremarkable. Minimal linear scarring or atelectasis involving right middle lobe is present. Diffuse right pleural high density is noted. Correlate with treatment history. No corresponding calcific densities involving the left pleura. Uptake of radiotracer involving the nichelle bilaterally is noted with SUV max of up to 4.5 on the left. Hilar uptake otherwise of up to SUV max of 3 is noted. These foci of uptake are greater than hepatic uptake. There are no associated enlarged lymph nodes identified to involve the hilum. Number of foci of uptake involving hilar regions are similar to previous exam. Small focus of uptake involving subcarinal region also noted similar to the prior exam. No new foci of uptake involving the thorax. Mild nonspecific interstitial thickening of lung zuñiga noted. Uptake of radiotracer involving the abdomen and pelvis is unremarkable. Uptake involving bowel is physiologic in distribution. No abnormal uptake involving the abdomen or pelvis to correspond with lymph nodes. A few nonobstructive left renal lower pole calyceal calculi are present. Urinary bladder is unremarkable. Advanced degenerative disc space narrowing of the cervical spine and at the lumbar spine noted. IMPRESSION: Uptake involving the hilum and subcarinal region is unchanged. Maximum SUV at the left hilum of up to 4.5 is noted similar to the prior exam. No new foci of uptake. No suspicious new finding. PQRS Compliance Statement: One or more of the following individualized dose reduction techniques were utilized for this examination: 1. Automated exposure control 2. Adjustment of the mA and/or kV according to patient size 3. Use of iterative reconstruction technique Electronically signed by: Gregory Ruiz MD (01/31/2019 10:43 AM) [facility]
== END | disposition home or self-care (01) ==
LOC: PETSC 07:25
PROVIDERS: ATTEND Internal Medicine Hematology & Oncology
DX: C83.33 Diffuse large B-cell lymphoma, intra-abdominal lymph nodes (principal); D72.820 Lymphocytosis (symptomatic); N20.0 Calculus of kidney; M48.02 Spinal stenosis, cervical region; M48.061 Spinal stenosis, lumbar region without neurogenic claudication; Z88.8 Allergy status to other drugs, medicaments and biological substances
CPT/HCPCS: 78815; A9552

== ENCOUNTER → 2019-05-02 | Outpatient (CLI) | payer MEDICARE, BC ==
[2018-11-18 10:49] VITALS: BP 146/79
--- NOTE | 2019-05-02 18:29 | RAD ---
Examination: PET W CT SKULL TO MIDTHIGH History: Lymphoma restaging Comparison/Correlation: 01/30/2019 PET/CT exam FINDINGS: Net dose 14.36 mCi F-18 FDG was administered intravenously for purposes of PET/CT exam. Blood glucose level at the time of radiotracer administration was 104 mg/dL. Imaging was performed from the skull base to the proximal thighs. Hepatic reference uptake is SUV max of 2 . Uptake of radiotracer involving visualized head and neck is normal. Calcified pleural plaques are noted especially in the right. Linear scarring in the anterior right lung base is present. Bilateral hilar foci of uptake is present. SUV max is 2 at most the sites of uptake. There is a left lower hilar focus of uptake with SUV max of 3.3. This may correspond with a small lymph node. No enlarged lymph nodes are identified. The distribution of uptake is unchanged. Uptake of radiotracer within the abdomen and pelvis is unremarkable. Splenectomy noted. Nonobstructive left renal lower pole calculus present. No abnormal uptake involving bony structures. Severe L1-2 disc space narrowing. IMPRESSION: Mild decrease in SUV max of the left lower hilar focus of uptake compared to the previous exam. Uptake is mildly greater than that of the liver. Lymph nodes overall are not visualized on the noncontrast CT exam to correspond with foci of uptake noted. Consider contrast-enhanced CT exam for further evaluation of lymph nodes. No enlarged lymph nodes identified on CT images as part of this PET CT exam. No suspicious new focus of uptake. PQRS Compliance Statement: One or more of the following individualized dose reduction techniques were utilized for this examination: 1. Automated exposure control 2. Adjustment of the mA and/or kV according to patient size 3. Use of iterative reconstruction technique Electronically signed by: Gregory Ruiz MD (05/02/2019 6:26 PM) [facility]
== END ==
LOC: PETSC 07:19
PROVIDERS: ATTEND Internal Medicine Hematology & Oncology
DX: C83.33 Diffuse large B-cell lymphoma, intra-abdominal lymph nodes (principal); N20.0 Calculus of kidney; J94.8 Other specified pleural conditions
CPT/HCPCS: 78815; A9552

== ENCOUNTER → 2019-11-17 | Outpatient (CLI) | payer MEDICARE ==
[2018-11-18 10:49] VITALS: BP 146/79
[2019-11-17 10:38] LABS: BASO % 1 % (0-3); EOS # 0.1 x10^3/uL (0.0-0.7); EOS % 3 % (0-3); HEMATOCRIT 41.1 % (36.0-47.0); HEMOGLOBIN 14.2 g/dL (12.0-15.5); LYMPH % 28 % (24-48); MEAN CORPUSCULAR HEMOGLOBIN 33 pg (25-35); MEAN CORPUSCULAR HGB CONC 35 g/dL (31-37); MEAN CORPUSCULAR VOLUME 94 fL (79-100); MONO # 0.3 x10^3/uL (0.0-1.1); MONO % 8 % (0-9); NEUT # 2.3 x10^3/uL (1.8-7.7); NEUT % 62 % (31-73); PLATELET COUNT 189 x10^3/uL (140-400); RED BLOOD COUNT 4.37 x10^6/uL (3.50-5.40); RED CELL DISTRIBUTION WIDTH 13.8 % (11.5-14.5); WHITE BLOOD COUNT 3.7 x10^3/uL (4.0-11.0)
[2019-11-17 10:56] LABS: ALBUMIN 3.4 g/dL (3.4-5.0); ALBUMIN/GLOBULIN RATIO 1.2 (1.0-1.7); CALCIUM 8.2 mg/dL (8.5-10.1); GFR 53.3; POTASSIUM 3.9 mmol/L (3.5-5.1); TOTAL BILIRUBIN 0.3 mg/dL (0.2-1.0); TOTAL PROTEIN 6.2 g/dL (6.4-8.2)
== END | disposition home or self-care (01) ==
LOC: LAB 10:03
PROVIDERS: ATTEND Internal Medicine Hematology & Oncology
DX: C83.33 Diffuse large B-cell lymphoma, intra-abdominal lymph nodes (principal)
CPT/HCPCS: 36415; 80053; 83615; 85025

== ENCOUNTER → 2019-12-01 | Outpatient (CLI) | payer MEDICARE ==
[2018-11-18 10:49] VITALS: BP 146/79
[~2019-12-01] MED LIST changes: +IOHEXOL 240 MG/ML 50ML VIAL. PO ONE; +IOHEXOL 300 MG/ML 100ML VIAL. IV ONE
--- NOTE | 2019-12-01 13:19 | RAD ---
CT CHEST ABD PELVIS W/CONTRAST Indication: Lymphoma Technique: Postcontrast CT imaging was performed of the chest, abdomen, pelvis, multiplanar reconstruction images submitted. Oral contrast was also given. One or more of the following individualized dose reduction techniques were utilized for this examination: 1. Automated exposure control 2. Adjustment of the mA and/or kV according to patient size 3. Use of iterative reconstruction technique. Comparison: PET/CT May 02, 2019; 03/16/[address] CHEST: Findings: Similar right apical density near pleural surface is more likely due to fibrotic change. There is again scattered calcified pleural plaque on the right. There is no pericardial or pleural fluid, pneumothorax, infiltrate, or new suspicious pulmonary nodularity. No new enlarged nodes are identified of the chest. There is emphysema. IMPRESSION: 1. There is no new significant chest lymphadenopathy or suspicious pulmonary nodularity. 2. There are again calcified pleural plaques on the right. Abdomen pelvis FINDINGS: No new significantly enlarged nodes are identified of the abdomen or pelvis. There is dilatation of the more distal aspect of the descending duodenum about 4.2 cm with appearance of degree of associated wall thickening. There is no evidence of bowel obstruction, oral contrast and level of the ascending colon. There is no free air or significant free fluid. Both kidneys enhance, no hydronephrosis. There are couple of small inferior left renal calculi with the largest about 0.3 cm. There is no adrenal nodularity. No focal abnormality is identified of the liver. Spleen is not enlarged. Appearance of mild relative fullness of the tail of pancreas is similar. There is mild S-shaped curvature of the lumbar spine. There is multilevel lumbar degenerative disc disease. There is minimal grade 1 anterior spondylolisthesis L3-4 through L5-S1, multilevel lumbar facet degenerative change. There is some variable likely mild lateral recess stenosis likely greatest on the right at L4-5. There is moderate to severe narrowing of the left L1-2 neural foramen, somewhat lesser degree of narrowing on the right at L3-4 and L4-5. There are multiple phleboliths in the pelvis bilaterally. There is some scattered plaque of the abdominal aorta. IMPRESSION: 1. No new significantly enlarged nodes are identified by CT. 2. There is nonspecific dilatation of the descending duodenum with some associated nonspecific wall thickening, could be associated with duodenitis. 3. There are a couple of small nonobstructive inferior left renal calculi. Electronically signed by: Naga Chapman MD (12/01/2019 1:16 PM) [id number]
== END | disposition home or self-care (01) ==
LOC: CT 10:22
PROVIDERS: ATTEND Internal Medicine Hematology & Oncology
DX: C83.33 Diffuse large B-cell lymphoma, intra-abdominal lymph nodes (principal); N20.0 Calculus of kidney; J92.9 Pleural plaque without asbestos; M43.8X6 Other specified deforming dorsopathies, lumbar region; M51.36 Other intervertebral disc degeneration, lumbar region; M43.17 Spondylolisthesis, lumbosacral region; M47.816 Spondylosis without myelopathy or radiculopathy, lumbar region; M99.83 Other biomechanical lesions of lumbar region; I70.0 Atherosclerosis of aorta; J43.9 Emphysema, unspecified; I87.8 Other specified disorders of veins; Z88.8 Allergy status to other drugs, medicaments and biological substances
CPT/HCPCS: 71260; 74177; Q9966; Q9967

== ENCOUNTER → 2020-05-24 | Outpatient (CLI) | payer MEDICARE ==
[2018-11-18 10:49] VITALS: BP 146/79
[2020-05-24 09:16] LABS: BASO % 0 % (0-3); EOS # 0.1 x10^3/uL (0.0-0.7); EOS % 2 % (0-3); HEMATOCRIT 45.1 % (36.0-47.0); HEMOGLOBIN 15.2 g/dL (12.0-15.5); LYMPH # 1.2 x10^3/uL (1.0-4.8); LYMPH % 30 % (24-48); MEAN CORPUSCULAR HEMOGLOBIN 32 pg (25-35); MEAN CORPUSCULAR HGB CONC 34 g/dL (31-37); MEAN CORPUSCULAR VOLUME 96 fL (79-100); MONO # 0.4 x10^3/uL (0.0-1.1); MONO % 9 % (0-9); NEUT # 2.3 x10^3/uL (1.8-7.7); NEUT % 59 % (31-73); PLATELET COUNT 210 x10^3/uL (140-400); RED BLOOD COUNT 4.73 x10^6/uL (3.50-5.40); WHITE BLOOD COUNT 3.9 x10^3/uL (4.0-11.0)
[2020-05-24 09:29] LABS: ALBUMIN 3.6 g/dL (3.4-5.0); ALBUMIN/GLOBULIN RATIO 1.2 (1.0-1.7); CALCIUM 9.1 mg/dL (8.5-10.1); CREATININE 0.8 mg/dL (0.6-1.0); POTASSIUM 4.1 mmol/L (3.5-5.1); TOTAL BILIRUBIN 0.3 mg/dL (0.2-1.0); TOTAL PROTEIN 6.5 g/dL (6.4-8.2)
--- NOTE | 2020-05-24 11:31 | RAD ---
EXAM: CT Chest, Abdomen and Pelvis with IV contrast CLINICAL HISTORY: LYMPHOMA COMPARISON: 12/01/2019 03/16/2018 TECHNIQUE: Helical CT of the chest, abdomen and pelvis was performed following the administration of intravenous contrast. Axial, coronal and sagittal reformatted images were generated. ---PQRS compliance statement - One or more of the following individualized dose reduction techniques were utilized for this study: 1. Automated exposure control 2. Adjustment of the mA and/or kV according to patient size 3. Use of iterative reconstruction technique--- FINDINGS: Chest: Pleural-based calcifications are seen bilaterally. No pleural effusion or pneumothorax. No suspicious lung nodule or mass is seen. Biapical pleural/parenchymal scarring/thickening Heart is not enlarged. No pericardial effusion. No definite mediastinal or hilar lymphadenopathy. Pro minent pericardial recess in the subcarinal region measures -2 Hounsfield units. No axillary lymphade nopathy. Distal esophageal wall thickening may be seen with esophagitis. Abdomen and Pelvis: No focal liver lesion. Gallbladder is normal. No biliary ductal dilatation. Pancreas is unremarkable. Spleen is normal in appearance. Adrenal glands are unremarkable. Symmetric nephrograms. No focal renal lesion. No hydronephrosis. Nonobstructing left lower pole renal calculi. Focal distention of the duodenum, unchanged. Infiltration about portions of the colon including descending colon and sigmoid, possibly infectious or inflammatory colitis. No abdominal or pelvic ascites. No abdominal or pelvic lymphadenopathy. Trace fat-containing periumbilical hernia is seen. Symphysis pubis and SI joint degenerative changes are seen. Degenerative changes of the spine particu larly at the L1-L2 level. S-shaped curvature of the thoracolumbar spine. No aggressive osseous lesion is seen. IMPRESSION: 1. No thoracic, abdominal or pelvic lymphadenopathy. 2. Infiltration about portions of the colon including descending colon and sigmoid, possibly infecti ous or inflammatory colitis. 3. Distal esophageal wall thickening may be seen with esophagitis. 4. Nonobstructing left lower pole renal calculi. Electronically signed by: Anthony Villalobos MD (05/24/2020 11:28 AM) [id number]
== END ==
LOC: CT 08:45
PROVIDERS: ATTEND Internal Medicine Hematology & Oncology
DX: C83.33 Diffuse large B-cell lymphoma, intra-abdominal lymph nodes (principal); N20.0 Calculus of kidney; J98.4 Other disorders of lung; M47.816 Spondylosis without myelopathy or radiculopathy, lumbar region
CPT/HCPCS: 36415; 71260; 74177; 80053; 83615; 85025; Q9966; Q9967

== ENCOUNTER → 2020-11-16 | Outpatient (CLI) | payer MEDICARE ==
[2018-11-18 10:49] VITALS: BP 146/79
[~2020-11-16] MED LIST changes: +METH-561 PO; -METH500T7 PO; -POLY17PO28 PO; +POLY17PO52 PO
[2020-11-16 08:13] LABS: BASO % 1 % (0-3); EOS # 0.1 x10^3/uL (0.0-0.7); EOS % 3 % (0-3); HEMATOCRIT 44.3 % (36.0-47.0); HEMOGLOBIN 15.2 g/dL (12.0-15.5); LYMPH # 1.3 x10^3/uL (1.0-4.8); LYMPH % 36 % (24-48); MEAN CORPUSCULAR HEMOGLOBIN 32 pg (25-35); MEAN CORPUSCULAR HGB CONC 34 g/dL (31-37); MEAN CORPUSCULAR VOLUME 94 fL (79-100); MONO # 0.4 x10^3/uL (0.0-1.1); MONO % 10 % (0-9); NEUT # 1.8 x10^3/uL (1.8-7.7); NEUT % 50 % (31-73); PLATELET COUNT 203 x10^3/uL (140-400); RED BLOOD COUNT 4.72 x10^6/uL (3.50-5.40); RED CELL DISTRIBUTION WIDTH 13.9 % (11.5-14.5); WHITE BLOOD COUNT 3.7 x10^3/uL (4.0-11.0)
[2020-11-16 08:33] LABS: ALBUMIN 3.9 g/dL (3.4-5.0); ALBUMIN/GLOBULIN RATIO 1.4 (1.0-1.7); CREATININE 0.8 mg/dL (0.6-1.0); GFR 68.8; POTASSIUM 4.3 mmol/L (3.5-5.1); TOTAL BILIRUBIN 0.4 mg/dL (0.2-1.0); TOTAL PROTEIN 6.7 g/dL (6.4-8.2)
--- NOTE | 2020-11-16 11:43 | RAD ---
PQRS Compliance Statement: One or more of the following individualized dose reduction techniques were utilized for this examinat ion: 1. Automated exposure control 2. Adjustment of the mA and/or kV according to patient size 3. Use of iterative reconstruction technique CT CHEST+ABD+PELVIS W 11/16/2020 8:16 AM INDICATION: Lymphoma; restaging COMPARISON: CT chest, abdomen and pelvis 05/24/2020, 12/01/2019 TECHNIQUE: Multiple axial CT images of the chest, abdomen and pelvis were obtained after the intraven ous administration of 75 mL Omnipaque 300. Coronal and sagittal reformats are provided. FINDINGS: Calcified pleural plaques along the right thoracic cavity may reflect prior asbestos exposure. No new or enlarging soft tissue component is identified. No suspicious solid noncalcified pulmonary nodules . No pleural effusions, pulmonary vascular congestion or pneumothorax. Thyroid gland is normal in joaquina earance. Heart size is stable. No pericardial effusion. Thoracic esophagus is normal. There is a left hilar lymph node measuring 7 mm by short axis, stable (series 2, is 31). Hypoattenuation of the hepatic parenchyma suggestive of hepatic steatosis. Liver, spleen, adrenal gla nds, pancreas and gallbladder are normal in appearance. Abdominal aorta is tortuous, normal in calibe r with moderate calcified atheromatous plaque. No pathologically enlarged lymph nodes identified in a bdomen and pelvis. There is no free fluid or free intraperitoneal air. 3 mm nonobstructing calculus i n interpolar left kidney. Kidneys enhance symmetrically. No suspicious renal mass. No hydronephrosis. Oral contrast was administered. Opacified bowel loops demonstrate normal mucosal pattern. Mild amoun t of stool noted throughout the colon. Appendix isn't definitively visualized. No pericecal inflammat ory changes are identified. Urinary bladder is within normal limits given degree of distention. No ramires spicious pelvic mass. No suspicious osseous abnormality is identified. S-shaped scoliosis of the thor acolumbar spine with moderate lumbar spondylosis. Pelvis and proximal femora are intact IMPRESSION : 1. Stable left hilar lymph node which is borderline in size. No new or enlarging thoracic, abdominal or pelvic lymphadenopathy. 2. 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 3. Nonobstructing calculus in interpolar left kidney. Electronically signed by: Oneyda Jeronimo MD (11/16/2020 11:41 AM) [facility]
== END ==
LOC: CT 08:49
PROVIDERS: ATTEND Internal Medicine Hematology & Oncology
DX: C83.33 Diffuse large B-cell lymphoma, intra-abdominal lymph nodes (principal); N20.0 Calculus of kidney; J92.9 Pleural plaque without asbestos; I70.0 Atherosclerosis of aorta; M41.85 Other forms of scoliosis, thoracolumbar region; M47.816 Spondylosis without myelopathy or radiculopathy, lumbar region
CPT/HCPCS: 36415; 71260; 74177; 80053; 83615; 85025; Q9966; Q9967